=== PATIENT | female | born 1975 | race Two or more races ===

== ENCOUNTER 2017-01-02 13:36 | Emergency (ER) | payer BC, OTHER ==
[2017-01-02] MEDS ORDERED: Sodium Chloride 0.9% 10 ML Syringe FLUSH PRN (13:43)
[2017-01-02] MEDS ORDERED: Nitroglycerin 0.4 MG Tab.SL SL ONE (13:44)
[2017-01-02] MEDS ORDERED: Ketorolac 30 MG/ML SDV IVPUSH ONE (13:44)
[2017-01-02] MEDS ORDERED: Ondansetron 4 MG/2 ML SDV IV ONE (13:44)
[2017-01-02] MEDS ORDERED: Morphine 2 MG/ML Syringe IVPUSH ONE (13:44)
[2017-01-02 14:15] VITALS: BP 96/66
[2017-01-02 14:23] LABS: CHLORIDE,CL 106 mmol/L (101-111); SODIUM,NA 138 mmol/L (135-145)
--- NOTE | 2017-01-02 20:13 | ER ---
SUBJECTIVE: The patient is a 41-year-old female, who has long QT syndrome and had an implantable defibrillator and pacemaker, which does not ever go off. 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 When we were extremely busy and with much stress and she suddenly became diaphoretic, had some chest discomfort, felt she was getting tunnel vision and felt like she might almost pass out. She was placed on room 6 and admitted for evaluation to the ER. Her symptoms were fairly short-term and they resolved after time. No longer having any chest discomfort or shortness of breath and diaphoresis result. She remained stable from that point on. She is a good historian, no recent illness, no bleeding, no , and no vomiting. PAST MEDICAL HISTORY: Significant for impaired vision, she wears glasses, she has a long QT syndrome and required a pacemaker and implantable defibrillator. She had chickenpox as a child. CURRENT MEDICATIONS: Denied. ALLERGIES: Include adhesive tape, causes hives. Codeine causes hives. Latex causes respiratory distress. SOCIAL HISTORY: [place] she does use tobacco every day for the last 34 years. She drinks occasionally socially. REVIEW OF SYSTEMS: No fever, chills, nausea, or vomiting. Prior to the symptoms today, no illness, no chest pain, shortness of breath, abdominal pain, bowel or bladder changes. During her symptoms, she did have some chest discomfort, mild shortness of breath, some nausea and diaphoresis, felt like she was having tunnel vision, all this resolved fairly quickly. OBJECTIVE: Vital Signs: She is afebrile. Healthy appearing. Normal vitals. HEENT: Normocephalic, atraumatic. A and O x3. GCS of 15. Neck, no lymphadenopathy. No JVD. Conjunctivae are clear. Mucous membranes moist. Chest: Clear. It is nontender. CV: RRR. Abdomen: Soft, benign. Extremities: No edema. She has good pulses at both upper and lower extremities. LAB/STUDIES: EKG did not show any acute concerning changes, normal sinus rhythm. White count is normal. She has no anemia. Normal platelets. Non- remarkable differential. INR 0.9. CMP is also completely non-remarkable. Her cardiac enzymes show troponin of less than 0.02 and normal. Total CK and CK-MB are all within normal limits as well. EMERGENCY ROOM COURSE: She remained stable, was no longer symptomatic. She was observed all her labs are back and her vitals remained stable and normal. At the end of her stay, she was ready for discharge, I did discuss with her the possibly of staying to get a recheck her enzymes she does not want to do this. I did give her the option to return this evening and get a 2nd set of enzymes even though they are expected to be normal. ASSESSMENT: 1. Long QT cardiac syndrome with implanted defibrillator pacemaker. 2. Brief episode of chest pain. 3. Diaphoresis, resolved. PLAN: Stay with family, home tonight, the patient does not want to stay in the ER for a 2nd set of enzymes. She is given a hand written prescription to come back as an outpatient for repeat outpatient cardiac enzymes this evening. Return sooner p.r.n. Stay with family. Note for her to miss tomorrow work if she needs it was given. Return for emergent issues otherwise follow up with her PCP. [facility] /[id number]
--- NOTE | 2017-01-24 08:20 | EKG ---
01/02/2017- LOUANN TERRAZAS - This is a standard 12-lead EKG showing normal sinus rhythm with normal NV interval. No ST-T changes. Normal QRS duration. [facility] /[id number]
== END 2017-01-02 16:22 | disposition home or self-care (01) ==
LOC: DL.ED 13:36
DX: I45.81 Long QT syndrome (principal); R07.9 Chest pain, unspecified; R61 Generalized hyperhidrosis; Z95.810 Presence of automatic (implantable) cardiac defibrillator; Z88.5 Allergy status to narcotic agent; Z91.040 Latex allergy status
CPT/HCPCS: 36415; 71010; 80053; 82550; 82553; 84484; 85025; 85610; 93005; 96374; 96375; 99285; J1885; J2405; J7050

== ENCOUNTER 2019-02-03 09:41 | Emergency (ER) | payer OTHER, BC ==
[2019-02-03 09:49] VITALS: BP 70/34
[2019-02-03] MEDS ORDERED: methylPREDNISolone Sodium Succinate 125 MG/2 ML SDV IVPUSH ONE (09:59)
--- NOTE | 2019-02-03 12:42 | EDM.PDOC ---
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 States allergy to latex, but unsure of trigger source. She developed wheezing, stridor and shortness of breath. Onset: Today Duration: Getting Worse Location: Reports: Generalized Severity: Severe Improves with: Reports: None Worsens with: Reports: None Associated Symptoms: Reports: No Other Symptoms - Related Data Allergies Allergy/AdvReac Type Severity Reaction Status Date / Time adhesive tape Allergy Hives Verified 02/03/19 09:47 codeine Allergy Hives Verified 02/03/19 09:47 latex Allergy Respiratory Verified 02/03/19 09:47 Distress Home Meds: Home Meds . [No Known Home Meds] 01/02/17 [History] Past Medical History HEENT History: Reports: Impaired Vision Other HEENT History: wears glasses Cardiovascular History: Reports: Heart Failure, Pacemaker, Other (See Below) Other Cardiovascular History: long QT Respiratory History: Reports: None Gastrointestinal History: Reports: None Genitourinary History: Reports: None PSYCH NP History: Reports: None Musculoskeletal History: Reports: None Neurological History: Reports: None Psychiatric History: Reports: None Endocrine/Metabolic History: Reports: None Hematologic History: Reports: None Immunologic History: Reports: None Oncologic (Cancer) History: Reports: None Dermatologic History: Reports: None - Infectious Disease History Infectious Disease History: Reports: None - Past Surgical History Female Surgical History: Reports: Section, Hysterectomy, Kidney stone extraction, Ureteral Stent Social & Family History - Family History Cardiac: Reports: Afib, Angina, Arrhythmia, Blood Clots/VTE/DVT, Heart Failure, Heart Murmur, Heart Valve Replacement, High Cholesterol, Hypertension, Pacemaker , Prior Cardiac Arrest, Pulmonary Hypertension, Stent, Syncope Respiratory: Reports: Asthma - Tobacco Use Smoking Status *Q: Former Smoker Used Tobacco, but Quit: Yes Month/Year Tobacco Last Used: 2018 - Caffeine Use Caffeine Use: Reports: None - Recreational Drug Use Recreational Drug Use: No - Living Situation & Occupation Living situation: Reports: with Significant Other ED ROS ALLERGIC REACTION - Review of Systems Review Of Systems: ROS reveals no pertinent complaints other than HPI. ED EXAM GENERAL NO PERIP PULSE - Physical Exam Exam: See Below Exam Limited By: No Limitations General Appearance: Other (respiratory moderate distress) Eye Exam: Bilateral Eye: EOMI, Normal Inspection, PERRL Ears: Normal External Exam, Normal Canal, Hearing Grossly Normal, Normal TMs Nose: Normal Inspection, Normal Mucosa, No Blood Throat/Mouth: Normal Inspection, Normal Lips, Normal Teeth, Normal Gums, Normal Oropharynx, Normal Voice, No Airway Compromise Head: Atraumatic, Normocephalic Neck: Normal Inspection, Supple, Non-Tender, Full Range of Motion Respiratory/Chest: Wheezing Cardiovascular: Normal Peripheral Pulses, Regular Rate, Rhythm, No Edema, No Gallop, No JVD, No Murmur, No Rub GI/Abdominal: Normal Bowel Sounds, Soft, Non-Tender, No Organomegaly, No Distention, No Abnormal Bruit, No Mass (Female) Exam: Deferred Rectal (Female) Exam: Deferred Back Exam: Normal Inspection, Full Range of Motion, NT Extremities: Normal Inspection, Normal Range of Motion, Non-Tender, Normal Capillary Refill, No Pedal Edema Neurological: Alert, Oriented, CN II-XII Intact, Normal Cognition, Normal Gait, Normal Reflexes, No Motor/Sensory Deficits Psychiatric: Normal Affect, Normal Mood Skin Exam: Other (generalized hives) Lymphatic: No Adenopathy Course - Vital Signs Last Recorded V/S: Last Vital Signs Temp 98.0 F 02/03/19 09:47 Pulse 130 H 02/03/19 09:47 Resp 22 H 02/03/19 09:47 BP 70/34 L 02/03/19 09:47 Pulse Ox 95 02/03/19 09:47 - Orders/Labs/Meds Meds: Medications Discontinued Medications Generic Name Dose Route Start Last Admin Trade Name Sybil PRN Reason Stop Dose Admin Methylprednisolone Sodium Succinate 125 mg 02/03/19 09:59 02/03/19 10:04 Solu-Medrol IVPUSH 02/03/19 10:00 125 mg ONETIME ONE Administration - Re-Assessments/Exams Free Text/Narrative Re-Assessment/Exam: 02/03/19 12:42 Vitals upon discharge 96% RA HR 76 104/47 Departure - Departure Time of Disposition: 11:00 Disposition: Home, Self-Care 01 Condition: Fair Clinical Impression: Allergic reaction Qualifiers: Encounter type: initial encounter Qualified Code(s): T78.40XA - Allergy, unspecified, initial encounter - Discharge Information *PRESCRIPTION DRUG MONITORING PROGRAM REVIEWED*: No *COPY OF PRESCRIPTION DRUG MONITORING REPORT IN PATIENT PETER: No Instructions: Allergies, Adult, [id number], Bronchospasm, Adult, [id number] Referrals: PCP,Unobtain [Primary Care Provider] - Forms: ED Department Discharge Additional Instructions: Continue to use albuterol nebs as needed Follow up with your primary care facility I have read and agree with the documentation that has been completed regarding this visit. By signing this record, I attest that the documentation was completed in my physical presence and is an accurate record of the encounter.
== END 2019-02-03 11:00 | disposition home or self-care (01) ==
LOC: DL.ED 09:41
DX: L50.0 Allergic urticaria (principal); I50.9 Heart failure, unspecified; Z91.040 Latex allergy status; Z88.8 Allergy status to other drugs, medicaments and biological substances; Z87.891 Personal history of nicotine dependence; Z88.5 Allergy status to narcotic agent
CPT/HCPCS: 96374; 99284; J2930

== ENCOUNTER 2022-01-27 19:53 | Emergency (ER) | payer BC ==
[~2022-01-27 19:53] MED LIST: Sodium Chloride 0.9% 10 ML Syringe FLUSH PRN
[2022-01-27 19:55] VITALS: BP 133/72; PULSE 70
[2022-01-27] MEDS ORDERED: Aspirin 81 MG Tab.Chew PO ONE (19:57)
[2022-01-27 20:25] LABS: ANION GAP 13.5 mEq/L (7-13); CHLORIDE,CL 103 mmol/L (98-107); SODIUM,NA 141 mmol/L (136-145)
== END 2022-01-27 22:32 ==
LOC: DL.ED 19:53
DX: T82.9XXA Unspecified complication of cardiac and vascular prosthetic device, implant and graft, initial encounter (principal); R07.9 Chest pain, unspecified; Z88.5 Allergy status to narcotic agent; Z91.040 Latex allergy status; Z91.048 Other nonmedicinal substance allergy status; Z87.891 Personal history of nicotine dependence; Z95.0 Presence of cardiac pacemaker
CPT/HCPCS: 36415; 71045; 80053; 83605; 83735; 83880; 84100; 84443; 84484; 85025; 85379; 86140; 93005; 93010; 99284; 99285; A9270; J3490

== ENCOUNTER 2023-10-12 10:58 | Emergency (ER) | payer BC, OTHER ==
[2023-10-12 11:10] LABS: BASOPHILS PERCENT AUTO 0.5 % (0.0-1.0); EOSINOPHILS PERCENT AUTO 3.4 % (1.0-3.0); HEMATOCRIT 30.3 % (37.0-47.0); HEMOGLOBIN 9.6 g/dL (12.0-16.0); LYMPHOCYTES PERCENT AUTO 23.6 % (20.5-50.1); MEAN CORPUSCULAR HEMOGLOBIN 29.8 pg (27.0-34.0); MEAN CORPUSCULAR HGB CONC 31.7 g/dL (33.0-35.0); MEAN CORPUSCULAR VOLUME 94.1 fL (80-100); NEUTROPHILS PERCENT AUTO 65.5 % (42.2-75.2); PLATELET COUNT,PLT 621 10^3/uL (150-450); RED BLOOD CELL COUNT 3.22 10^6/uL (4.2-5.4); WHITE BLOOD CELL COUNT,WBC 6.5 10^3/uL (5.0-10.0)
[2023-10-12] MEDS: Sodium Chloride 0.9% 10 ML Syringe FLUSH PRN (11:13)
[2023-10-12] MEDS ORDERED: cefTRIAXone 1 GM, Lidocaine 1% 2.1 ML IM ONE ×2 (11:16)
[2023-10-12 11:20] LABS: A/G RATIO 0.89; ALBUMIN 3.2 g/dL (3.4-5.0); ANION GAP 15.6 mEq/L (7-13); BILIRUBIN TOTAL 0.4 mg/dL (0.2-1.0); BUN/CREATININE RATIO 13.2 (No establ ref range); C-REACTIVE PROTEIN 3.28 ng/dL (<=0.50); CALCIUM 8.9 mg/dL (8.5-10.1); CREATININE 0.91 mg/dL (0.55-1.02); EST CRCL DRUG DOSING (CG) 67.29 mL/min; POTASSIUM,K 3.6 mmol/L (3.5-5.1); PROTEIN TOTAL,TP 6.8 g/dL (6.4-8.2)
[2023-10-12 11:24] LABS: LACTIC ACID 0.9 mmol/L (0.4-2.0)
[2023-10-12] MEDS: Scopalamine 1mg/3day Transdermal Patch TRDERM ONE (11:49)
[2023-10-12] MEDS: Iopamidol 612 MG/ML 100 ML Bottle IVPUSH ONE (12:18)
[2023-10-12 12:34] LABS: APPEARANCE,URINE CLEAR (CLEAR); BILIRUBIN,URINE NEGATIVE (NEGATIVE); COLOR,URINE YELLOW (YELLOW); GLUCOSE,URINE NEGATIVE (NEGATIVE); KETONES,URINE NEGATIVE (NEGATIVE); LEUKOCYTE ESTERASE,URINE NEGATIVE (NEGATIVE); NITRITE,URINE NEGATIVE (NEGATIVE); OCCULT BLOOD,URINE TRACE-INTACT (NEGATIVE); PH,URINE 5.5 (5.0-9.0); PROTEIN,URINE NEGATIVE (NEGATIVE); UROBILINOGEN,URINE 0.2 mg/dL (0.2-1.0)
[2023-10-12] MEDS: Furosemide 40 MG/4 ML VIAL IVPUSH ONE (12:43)
[2023-10-12 12:44] LABS: BACTERIA,URINE FEW /HPF (0-FEW/HPF); EPITHELIAL CELLS,URINE OCCASIONAL /HPF (NOT SEEN); MUCUS,URINE RARE /LPF (NOT SEEN); RBC,URINE 0-5 /HPF (0-5); WBC,URINE NOT SEEN /HPF (0-5/HPF)
[2023-10-12] MEDS: Ketorolac 30 MG/ML SDV IVPUSH ONE (15:04)
[2023-10-12 15:13] VITALS: BP 98/73; PULSE 94
== END 2023-10-12 15:27 | disposition home or self-care (01) ==
LOC: DL.ED 10:58
DX: J90 Pleural effusion, not elsewhere classified (principal); Z91.010 Allergy to peanuts; Z88.8 Allergy status to other drugs, medicaments and biological substances; Z91.048 Other nonmedicinal substance allergy status
CPT/HCPCS: 36415; 71260; 74177; 80053; 81001; 83605; 83735; 83880; 84156; 84484; 85025; 86140; 93005; 94660; 96374; 96375; 99285-25; A9270-GY; J1885; J1940; J3490; Q9967